=== PATIENT | female | born 1965 | race Hispanic/Latino ===

== ENCOUNTER 2019-05-07 23:24 | Observation (INO) ==
--- NOTE | 2019-05-08 01:12 | EKG Report ---
Test Performed on : 05/07/2019 11:56:40 PM Test Reason : dizziness Blood Pressure : / mmHG Vent. Rate : 084 BPM Atrial Rate : 084 BPM P-R Int : 158 ms QRS Dur : 078 ms QT Int : 352 ms P-R-T Axes : 035 035 002 degrees QTc Int : 415 ms Normal sinus rhythm. Normal ECG When compared with ECG of 13-MAY-2016 11:54, No significant change was found Unconfirmed Result
--- NOTE | 2019-05-08 03:24 | ED EKG INTERP ---
This chart was entered by Chela Bernal Scribe, acting as scribe for Lilly Schumacher MD. EKG Interpretation - EKG Time of EKG reading by physician:: 00:00 EKG Read and Signed by:: Lilly Schumacher EKG Interpretation (*Must complete 3 of following elements*): Normal Rate: 84 Rhythm: nsr [place]: normal QRS: normal MS Interval: normal ST Wave: normal Attestation - Physician/ EDY Attestation Patient care was provided by Advanced Practice Provider:: No The physician spent face to face time with patient:: Yes Advanced Practice Provider documentation review:: Supervising physician onsite and consulted in the evaluation and care of this patient. The physician did have a face to face encounter with the patient. This chart was documented by the indicated scribe, (Chela Bernal, Vahe) and accurately reflects the services I performed and decisions made by oh, Lilly Schumacher MD, as attested by the provider's signature.
--- NOTE | 2019-05-08 03:28 | PROVIDER DOCUMENTATION ---
HPI-General Adult - General Chief Complaint: Low Blood Sugar Stated Complaint: LOW SUGAR/DIZZY/BLURRED VISION Time Seen by Provider: 05/08/19 01:39 Source: patient Allergies/Adverse Reactions: Patient Allergies Allergy/AdvReac Type Severity Reaction Status Date / Time latex Allergy HIVES Verified 05/08/19 01:52 shrimp Allergy ANAPHYLAXIS Verified 05/08/19 01:52 Home Medications: Home Medication List Medication Instructions Recorded Confirmed Last Taken Type NK [No Home Medications] 05/08/19 05/08/19 Unknown History - History of Present Illness -Gen Adult Nature of Presenting Problems: patient notes that she felt that she would pass out at work today. Notes that she felt flushed and dizzy. No prior episodes like this. +palpitations. No h/o syncope in the past. Location of Pain/Injury: reports: none Pain Radiation: reports: no radiation Quality of Pain: reports: none Onset/Duration: reports: just prior to arrival Timing: reports: still present Context/Activities at Onset: reports: moderate activity Modifying Factors: improves with: nothing Associated Symptoms: reports: dizziness, nausea, syncope, weakness Similar Symptoms Previously?: No Recently seen or treated by another doctor?: No Review of Systems - Adult - REVIEW OF SYSTEMS - ADULT Constitutional: reports: no symptoms reported Eyes: reports: no symptoms reported Ears, Nose, Mouth & Throat: reports: no symptoms reported Cardiovascular: reports: no symptoms reported Respiratory: reports: no symptoms reported Gastrointestinal: reports: no symptoms reported Genitourinary: reports: no symptoms reported Musculoskeletal: reports: no symptoms reported Integumentary: reports: no symptoms reported Neurological: reports: see HPI Psychiatric: reports: no symptoms reported Endocrine: reports: no symptoms reported Hematologic/Lymphatic: reports: no symptoms reported Allergic/Immunologic: reports: no symptoms reported All Other Systems: Reviewed and Negative Past History - Adult - PAST MEDICAL HISTORY-ADULT Review of Records: reports: Old Records Reviewed Major Childhood Illnesses: reports: denies history Cardiovascular: reports: hyperlipidemia Respiratory: reports: denies history Gastrointestinal: reports: denies history Obstetrical/Gynecological: reports: denies history Genitourinary: reports: denies history Musculoskeletal: reports: denies history Neurological: reports: denies history Psychiatric: reports: denies history Endocrine/Immune: reports: denies history Other Conditions: reports: denies history - PRIOR SURGERIES/PROCEDURES Surgical/Procedure History: reports: BTL - IMMUNIZATION STATUS Childhood Immunizations: See Nurse Assessment Flu Vaccine: See Nurse Assessment - FAMILY HISTORY Family History: reviewed, not pertinent Physical Exam-General - PHYSICAL EXAM-ADULT Initial Vital Signs Reviewed: Yes - CONSTITUTIONAL General Appearance: appears well, alert, no apparent distress - EYES Eyes: PERRL/EOMI, pink conjunctivae - HEAD, EARS, NOSE, MOUTH & THROAT HENMT: normocephalic/atraumatic, moist mucous membranes, normal ENT inspection - NECK Neck: non-tender, full range of motion, supple, normal inspection - RESPIRATORY Respiratory: chest non-tender, lungs clear, normal breath sounds, no pleuratic chest pain, no respiratory distress, no accessory muscle use - CARDIOVASCULAR Cardiovascular: normal peripheral pulses, regular rate, rhythm, no edema, no gallop, no JVD, no murmur - GASTROINTESTINAL (ABDOMEN) Abdominal Exam: normal bowel sounds, non tender, soft - LYMPHATIC Lymphatic: no adenopathy - MUSCULOSKELETAL Back Exam: normal inspection, no CVA tenderness, no vertebral tenderness Extremity: normal range of motion, normal gait, normal inspection - SKIN Integumentary: normal color, normal turgor, warm/dry - NEUROLOGIC Neurologic: grossly normal - PSYCHIATRIC Psych/Mental Status: normal mood/affect, normal thought content, normal thought process, oriented x 3 Progress - PLAN OF CARE/RESULTS Progress/Plan/Lab Results: Vital Signs - 8 hr 05/07/19 23:49 05/08/19 02:03 Temperature 98.0 F Pulse Rate 90 87 Respiratory Rate 16 22 Blood Pressure 101/68 115/65 O2 Sat by Pulse Oximetry 96 97 Orders Category Date Time Status Orthostatic Vital Signs NOW Care 05/08/19 02:55 Active CHEST-2 VIEWS [RAD] Stat Exams 05/08/19 02:[address] HEAD W/O CONTRAST [CT] Stat Exams 05/08/19 02:54 Taken CBC WITH ELECTRONIC DIFF [HEME] Stat Lab 05/08/19 02:54 Uncollected COMPREHENSIVE METABOLIC PANEL [CHEM] Stat Lab 05/08/19 02:54 Uncollected TROPONIN T HIGH SENSITIVITY Stat Lab 05/08/19 02:55 Uncollected EKG [EKG] Stat Ther 05/07/19 23:55 Draft Result Diagrams: 05/08/19 03:52 05/08/19 03:52 - CONSULTS/PCP/HOSPITALIST Notification #1 *Consult/PCP/Hospitalist*: Dr. Gaspar Time Discussed: 05:02 Consult Disposition: Admit Departure - Departure Date of Disposition Decision: 05/08/19 Time of Disposition Decision: 05:02 DIAGNOSIS: NSTEMI (non-ST elevated myocardial infarction) Disposition: ADMITTED INPATIENT 09 Certified Medical Emergency: Emergent Condition: Stable Referrals and Follow-Ups: Ashleigh Darby CRNP [Primary Care Provider] - - Critical Care Note This patient required my direct & personal management of CC.: No Attestation - Physician/ EDY Attestation Patient care was provided by Advanced Practice Provider:: No The physician spent face to face time with patient:: Yes Advanced Practice Provider documentation review:: Supervising physician onsite and consulted in the evaluation and care of this patient. The physician did have a face to face encounter with the patient.
[2019-05-08 04:07] LABS: BASO# 0.03 X1000 (0.0-0.2); BASO% 0.3 % (0.0-0.8); EOS# 0.45 X1000 (0.0-0.7); EOS% 5.1 % (0.0-10.0); HEMATOCRIT 40.1 % (37.0-47.0); HEMOGLOBIN 13.1 g/dL (12.0-16.0); LYMPH# 2.16 X1000 (1.2-3.4); LYMPH% 24.4 % (20.5-51.1); MCH 28.7 PG (27-31); MCHC 32.7 g/dL (33-37); MCV 87.9 FL (81-99); MONO# 0.54 X1000 (0.11-0.59); MONO% 6.1 % (1.7-9.3); MPV 8.9 FL (7.4-10.4); NEUT# 5.69 X1000 (1.4-6.5); NEUT% 64.1 % (42.2-75.2); PLT 320 X1000 (130-400); RBC 4.56 XMIL (4.2-5.4); RDW 12.9 % (11.5-14.5); WBC 8.87 X1000 (4.8-10.8)
[2019-05-08 04:21] LABS: AGAP 11; ALB/GLOB RATIO 1.3; ALBUMIN 4.1 g/dL (3.5-5.0); ALKALINE PHOSPHATASE 105 U/L (32-104); BUN 8 mg/dL (8-22); CALCIUM 9.4 mg/dL (8.8-10.2); CHLORIDE 103 mmol/L (98-107); COSMO 277; CREATININE 0.5 mg/dL (0.5-0.9); ESTIMATED GFR > 60; GLUCOSE 93 mg/dL (70-104); GOT 25 U/L (10-30); GPT 27 U/L (10-36); POTASSIUM 4.2 mmol/L (3.5-5.1); SODIUM 140 mmol/L (136-145); TCO2 26 mmol/L (25-35); TOTAL BILIRUBIN 0.26 mg/dL (0.20-1.00); TOTAL PROTEIN 7.3 g/dL (6.3-8.3)
[2019-05-08] MEDS ORDERED: HEPARIN IV ONE (05:04)
--- NOTE | 2019-05-08 06:30 | Diag Imaging Result Doc PS360 ---
CT HEAD W/O CONTRAST - 05/08/2019 INDICATION: near syncope COMPARISON: 05/13/2016 FINDINGS: The ventricles and sulci are normal in size and contour. No intracranial mass or hemorrhage. The skull is intact. The sinuses mastoids and middle ears are clear. IMPRESSION: Negative exam. This exam was performed using automated exposure control, adjustment of mA or kV according to patient size, and/or use of iterative reconstruction technique Electronically signed by Jun Mcgovern 05/08/2019 6:27 AM
--- NOTE | 2019-05-08 07:28 | Diag Imaging Result Doc PS360 ---
EXAM: CHEST-2 VIEWS 05/08/2019 HISTORY: near syncope TECHNIQUE: PA and lateral chest COMMENT: There are coarse opacities over both lung bases the right middle lobe and the anterior portion of the right upper lobe inferiorly. Compared to 10/20/2016 this has not changed and is likely due to fibrosis. IMPRESSION: Pulmonary fibrosis. Electronically signed by Agus Crandall 05/08/2019 7:26 AM
[2019-05-08] MEDS ORDERED: TYLENOL PO PRN (07:34)
[2019-05-08] MEDS ORDERED: ZOFRAN IV PRN (07:34)
--- NOTE | 2019-05-08 08:05 | HISTORY AND PHYSICAL ---
CHIEF COMPLAINT: Blurry vision, dizziness. HISTORY OF PRESENT ILLNESS: This is a 54-year-old female who felt dizzy at work today. She felt flushed and dizzy and no prior episodes of this. She says that she had had some palpitations and some fleeting chest pain which was sharp in her left chest but went away quickly. She did not become diaphoretic. No nausea, vomiting. She did not have a history of syncope. She really has no past medical history other than arthritis, history of hyperlipidemia but does not take any medications for it from what I understand. Her high sensitivity troponin was in the 40s. The ER provider did not want to send the patient home. Her calculated heart score is not significantly high but we will place the patient in observation to rule out WI. PAST MEDICAL HISTORY: See HPI. PREVIOUS SURGICAL HISTORY: BTL. ALLERGIES: Latex and shrimp. HOME MEDICATIONS: No home medications. FAMILY HISTORY: Father had diabetes mellitus. SOCIAL HISTORY: No tobacco, alcohol or illicit drugs. REVIEW OF SYSTEMS: A 14 point review of systems conducted with the patient and pertinent positives listed above in the HPI. All other systems reviewed and found to be negative. PHYSICAL EXAMINATION: VITAL SIGNS: Temperature 98 degrees, pulse 87, respirations 22, blood pressure 115/65, oxygen saturation 97% on room air. GENERAL: Pleasant 54-year-old female lying in the ER stretcher in no acute distress. She is alert and oriented x3. HEENT: Head is atraumatic, normocephalic. Pupils equal, round and reactive to light. Extraocular eye movements intact. Sclerae are anicteric. Conjunctivae are pink. Oral mucosa is moist. NECK: Supple. No JVD. No thyromegaly. Trachea is midline. No cervical lymphadenopathy. CARDIAC: S1, S2 appreciated. No murmurs, gallops, rubs. LUNGS: Clear to auscultation bilaterally. No rhonchi, wheezes, rales. Symmetric rise and fall of respirations. ABDOMEN: Soft, nondistended, nontender. Bowel sounds present in all 4 quadrants. Normoactive. No pulsatile masses or organomegaly. NEUROLOGICAL: She is alert and oriented x3. Cranial nerves 2-12 grossly intact. DIAGNOSTIC DATA: CT of the head, results are pending. Chest x-ray, no acute disease. LABORATORY DATA: CBC, chemistry within normal limits. High sensitivity troponin is 48. ASSESSMENT AND PLAN: 1. Chest pain. 2. Arthritis. 3. Dizziness. PLAN: Admit patient to observation status. Check echo. Check a direct lipid profile. Obtain orthostatic vital signs. Patient was given heparin IV in the emergency room. We will trend cardiac enzymes. Further recommendations per patient's clinical course. Dictated by JEET Shaw for Gurjit Gaspar MD cc: JEET Shaw MD
[2019-05-08] MEDS: PRILOSEC PO SCH (08:47)
[2019-05-08] MEDS ORDERED: ASPIRIN PO SCH (09:00)
--- NOTE | 2019-05-08 12:27 | EKG Report ---
Test Performed on : 05/08/2019 12:15:48 PM Test Reason : chest pain Blood Pressure : / mmHG Vent. Rate : 077 BPM Atrial Rate : 077 BPM P-R Int : 152 ms QRS Dur : 084 ms QT Int : 380 ms P-R-T Axes : 013 045 011 degrees QTc Int : 430 ms Normal sinus rhythm. Normal ECG When compared with ECG of 07-MAY-2019 23:56, (Unconfirmed) No significant change was found Confirmed by Roni Dsouza MD ([id number]) on 05/08/2019 1:02:03 PM
--- NOTE | 2019-05-08 12:52 | Diag Imaging Result Doc PS360 ---
CT ANGIOGRM PULMONARY ARTERIES - 05/08/2019 INDICATION: dyspnea TECHNIQUE: Axial CT images were obtained after administering intravenous contrast. Coronal MIP images were generated. COMPARISON: Chest x-ray from earlier today FINDINGS: There is no pulmonary embolism. Heart and great vessels are normal. There is a small anterior mediastinal mass. This measures about 2 x 1.7 cm. There is extensive indeterminate infiltrate in both lung bases, involving the lower lobes as well as the lingula and right middle lobe. There are also some mild scattered patchy infiltrates in the anterior upper lobes bilaterally. No pneumothorax or pleural effusion. Upper abdominal images are unremarkable. Bones are intact and well mineralized. IMPRESSION: 1. Negative for pulmonary embolism. 2. Extensive bilateral predominantly basilar infiltrates. Nonspecific but suggestive of bronchopneumonia. 3. Small mass or enlarged lymph node in the anterior mediastinum. Follow-up recommended. This exam was performed using automated exposure control, adjustment of mA or kV according to patient size, and/or use of iterative reconstruction technique Electronically signed by Jun Mcgovern 05/08/2019 12:50 PM
--- NOTE | 2019-05-08 13:45 | ECHO REPORT ---
ORDER DATE: 05/08/2019 INDICATION: Chest pain. FINDINGS: 1. Right atrium appears normal in size at 3.1 cm. 2. Mild tricuspid regurgitation, RV systolic pressure of 31. 3. Normal RV size and systolic function. 4. Trace pulmonic insufficiency. 5. Borderline left atrial enlargement with a volume index of 28. 6. No mitral prolapse. Mild mitral regurgitation. 7. Normal LV size, end-diastolic dimension of 3.6 cm. Normal wall thicknesses, with a posterior and interventricular septal thickness of 0.9 cm each. Normal LV systolic function. Calculated ejection fraction of 62% with normal wall motion. 8. Aortic valve opens well. It is trileaflet. No evidence of stenosis or insufficiency. 9. Aorta appears normal in visualized segments. 10. No pericardial effusion seen. 11. Indeterminate diastolic dysfunction on this study. cc: MD Nadeem Deng CRNP
[2019-05-08] MEDS: MAXIPIME 1 GM in NS 50 ML IV SCH (16:46)
[2019-05-08] MEDS: NS 1,000 ML IV SCH (16:47)
--- NOTE | 2019-05-08 17:37 | Diag Imaging Result Document ---
PROCEDURE NAME: MYOCARDIAL PERF SCAN, STR/REST - 05/08/2019 INDICATION: Chest pain. PROCEDURES PERFORMED: 1. Sathya protocol stress. 2. One-day stress rest myocardial perfusion imaging. (rest dose 11.6 millicuries, stress dose 34.7 mCi). SATHYA PROTOCOL STRESS RESULTS: 1. Baseline EKG shows sinus rhythm. 2. Patient exercised for a total of 5 minutes 30 seconds achieving peak heart rate of 160, which was 95% of age predicted max. Achieved 7 METS and stage 2 of the Sathya protocol. Exercise capacity was only 85% of age and sex predicted exercise capacity. 3. Appropriate blood response to exercise. 4. Test was terminated due to fatigue. 5. There is 5/10 chest tightness occurring during the course of the study. 6. No clear evidence of ischemic related EKG changes or significant arrhythmias. Occasional PVCs and couplets were identified during the course of the study. PERFUSION IMAGING RESULTS: 1. No evidence of abnormal extracardiac uptake. 2. TID ratio 0.93. 3. Perfusion imaging demonstrates a very scant, very mild defect noted in the mid anteroseptal. I do not believe there is any significant degree of reversibility associated with this. This is an extremely small defect. Clinical correlation is recommended. 4. Normal ejection fraction of 83%. The end-diastolic volume is 67. End systolic volume is 12. Wall motion is normal. cc: MD Nisha Deng MD
[2019-05-08] MEDS: ZYVOX PO SCH (21:23)
[2019-05-09] MEDS: MAXIPIME 1 GM in NS 50 ML IV SCH ×2 (02:14→14:26)
[2019-05-09] MEDS: NS 1,000 ML IV SCH ×3 (04:32→15:55)
[2019-05-09] MEDS: PRILOSEC PO SCH (06:32)
[2019-05-09] MEDS: ZYVOX PO SCH ×3 (07:48→20:02)
[2019-05-09] MEDS: LOVENOX SUBQ SCH ×2 (07:48→08:27)
[2019-05-09] MEDS: ASPIRIN PO SCH ×2 (07:48→08:27)
[2019-05-09 08:32] LABS: HEMATOCRIT 40.3 % (37.0-47.0); HEMOGLOBIN 13.1 g/dL (12.0-16.0); MCH 29.2 PG (27-31); MCHC 32.5 g/dL (33-37); MCV 89.8 FL (81-99); MPV 9.3 FL (7.4-10.4); RBC 4.49 XMIL (4.2-5.4); RDW 13.4 % (11.5-14.5); WBC 5.99 X1000 (4.8-10.8)
[2019-05-09 09:23] LABS: AGAP 13; BUN 9 mg/dL (8-22); CALCIUM 8.8 mg/dL (8.8-10.2); CHLORIDE 103 mmol/L (98-107); COSMO 273; CREATININE 0.5 mg/dL (0.5-0.9); ESTIMATED GFR > 60; GLUCOSE 79 mg/dL (70-104); POTASSIUM 4.2 mmol/L (3.5-5.1); SODIUM 138 mmol/L (136-145); TCO2 22 mmol/L (25-35)
[2019-05-10] MEDS: MAXIPIME 1 GM in NS 50 ML IV SCH (01:05)
--- NOTE | 2019-05-10 04:15 | PROGRESS NOTE ---
DATE: 05/09/2019 SUBJECTIVE: The patient states that she feels much better today. She denies having any shortness of breath, headache, or dizziness. OBJECTIVE: Vital Signs: Temperature 97.7 degrees, blood pressure 112/71, heart rate 82, respirations 19, O2 saturation 98% on room air. General: This is an elderly female, lying in bed in no acute distress. Heart: S1, S2 normal. Regular rate and rhythm. Lungs: Clear to auscultation bilaterally. Abdomen: Positive bowel sounds. Soft, nontender, nondistended. Extremities: No edema, no cyanosis, no calf tenderness. Neurologic: The patient is alert and oriented x3. LABORATORY DATA: Reviewed and within normal limits. ASSESSMENT AND PLAN: 1. Bilateral lobe pneumonia. Continue with antibiotic and incentive spirometry. If the patient continues to improve, we will likely transition to oral antibiotic therapy and discharge the patient home tomorrow. 2. Deep vein thrombosis prophylaxis. Continue on Lovenox. cc: Nisha Liriano MD
[2019-05-10] MEDS: PRILOSEC PO SCH (06:50)
[2019-05-10 07:59] VITALS: BP 108/72
--- NOTE | 2019-05-10 08:56 | Diag Imaging Result Doc PS360 ---
EXAM: CHEST-2 VIEWS HISTORY: pneumonia TECHNIQUE: Two views COMPARISON: 05/08/2019 FINDINGS: The lungs are well expanded. Increased interstitial markings in both lung bases similar to the prior exam. No cardiomegaly. No pulmonary edema. Questionable trace pleural fluid. IMPRESSION: Persistent basilar infiltrates Electronically signed by Kuldip Garrido 05/10/2019 8:54 AM
[2019-05-10] MEDS ORDERED: FLU VACCINE IM ONE (09:30)
[2019-05-10] MEDS: ASPIRIN PO SCH (09:31)
[2019-05-10] MEDS: ZYVOX PO SCH (09:31)
[2019-05-10] MEDS: LOVENOX SUBQ SCH (09:31)
--- NOTE | 2019-05-10 21:42 | DISCHARGE SUMMARY ---
ADMISSION DATE: 05/07/2019 DISCHARGE DATE: 05/10/2019 FINAL DISCHARGE DIAGNOSES: Community-acquired pneumonia. IMAGIN. Portable chest x-ray performed on 05/08/2019, which revealed pulmonary fibrosis. 2. A head CT which was noted to be negative. 3. Echocardiogram performed on 05/08/2019, which revealed an ejection fraction of 62%. No pericardial effusion. Mild mitral regurgitation. Mild tricuspid regurgitation. Indeterminate diastolic dysfunction. 4. Pulmonary arteriogram performed on 05/08/2019, which revealed extensive bilateral predominantly basilar infiltrates suggestive of bronchopneumonia. 5. Small mass or enlarged lymph node in the anterior mediastinum. 6. Myocardial perfusion scan performed on 05/08/2019, which revealed no evidence of ischemic changes. 7. Two-view chest x-ray performed on 05/10/2019, which revealed persistent basilar infiltrates. HOSPITAL COURSE: Ms. Lees is a 54-year-old female with no significant past medical history, who presented to the ER with a chief complaint of dizziness and cough. On admission, the patient was complaining of some mild chest pain as well. The EKG did not show any significant changes. The patient was noted to be in normal sinus rhythm with no ST or T-wave abnormalities. A head CT was done that was noted to be unremarkable. Also, a pulmonary arteriogram was done that revealed no evidence of PE, but did reveal extensive bilateral lobe pneumonia and a small mass in the anterior mediastinum. The patient was admitted to the hospitalist service. Blood cultures were obtained and antibiotics were initiated. The patient was treated with cefepime and Zyvox during the hospitalization. The patient did not require supplemental oxygen therapy during her stay and she stated that she felt much better after receiving 2 days of IV antibiotics. The patient continued to improve clinically and was ultimately cleared for discharge on 05/10/2019. DISCHARGE MEDICATIONS: 1. Azithromycin 500 mg oral daily x5 days. 2. Augmentin 875/125 mg 1 tab oral twice a day x5 days. 3. Robitussin DM 10 mL oral every 4 hours p.r.n. for cough. DISCHARGE DIET: Regular diet. ACTIVITY: As tolerated. FOLLOWUP INSTRUCTIONS: The patient will need to follow up with Sari Darby in one week for repeat chest x-ray when she completes the antibiotics. We will also refer the patient to the shearing machine tender. Given the finding of this small mass or lymph node in the anterior mediastinum, the patient will likely need a repeat CT once she completes therapy with pneumonia. cc: MD Ashleigh Casarez CRNP
== END 2019-05-10 10:50 | disposition home or self-care (01) ==
LOC: EDIPHOLD 23:24 → ED 23:24 → SUATTDRO 23:25 → EDIPHOLD 05-08 14:46 → 4N 05-08 19:29
PROVIDERS: ATTEND Internal Medicine